=== PATIENT | female | born 1960 | race Caucasian/White ===

== ENCOUNTER 2020-02-26 01:48 | Inpatient (IN) ==
[2020-02-26] MEDS ORDERED: Naloxone 0.4 MG/ML INJ IVP PRN ×2 (02:43→19:52)
[2020-02-26] MEDS ORDERED: 0.9 % Sodium Chloride 1,000 ML IVC SCH (02:45)
[2020-02-26 05:49] LABS: Basophils # 0.1 K/mcL (0.0-0.2); Basophils % 0.5 %; Eosinophils % 0.2 %; Hematocrit 36.9 % (35.3-44.9); Hemoglobin 12.2 g/dL (11.5-15.4); Immature Granulocytes % 0.6 % (0-4); Lymphocytes # 1.4 K/mcL (0.6-4.6); Lymphocytes % 8.7 %; Mean Corpuscular HGB Conc 33.1 g/dL (31.6-35.5); Mean Corpuscular Hemoglobin 30.2 pg (28.0-33.3); Mean Corpuscular Volume 91.3 fL (83.0-100.0); Mean Platelet Volume 9.3 fL (9.4-12.4); Monocytes # 1.4 K/mcL (0.0-1.3); Monocytes % 8.6 %; Neutrophils # 13.4 K/mcL (1.6-8.9); Platelet Count 298 K/mcL (140-400); Red Blood Count 4.04 M/mcL (3.82-4.97); Red Cell Distribution Width 11.9 % (11.5-14.5); Segmented Neutrophils % 81.4 %; White Blood Count 16.5 K/mcL (4.3-11.1)
[2020-02-26 05:54] LABS: INR 1.3; Prothrombin Time 14.6 Seconds (9.4-12.1)
[2020-02-26 05:57] LABS: Activated Partial Thrombo Time 28.6 Seconds (26.0-36.0)
[2020-02-26 06:09] LABS: Alanine Aminotransferase 23 Units/L (7-52); Albumin 3.6 g/dL (3.5-5.7); Albumin/Globulin Ratio 1.3 (1.1-2.2); Alkaline Phosphatase 128 Units/L (34-104); Aspartate Amino Transferase 15 Units/L (13-39); BUN/Creatinine Ratio 16 (6-26); Bilirubin,Total 0.5 mg/dL (0.3-1.0); Blood Urea Nitrogen 10 mg/dL (8-23); Calcium 8.5 mg/dL (8.6-10.3); Carbon Dioxide 27 mEq/L (23-29); Chloride 102 mEq/L (98-107); Globulin 2.8 g/dL (2.4-3.5); Glucose 107 mg/dL (70-105); Osmolality,Calculated 282 (280-300); Potassium 3.3 mEq/L (3.5-5.1); Sodium 136 mEq/L (136-145); Total Protein 6.4 g/dL (6.4-8.9); eGFR For African Americans > 60 (> 60); eGFR For Non-African Americans > 60 (> 60)
[2020-02-26] MEDS ORDERED: Isovue-370 500 ML BOTTLE IVP ONE (08:53)
[2020-02-26] MEDS ORDERED: *HR* HYDROmorphone (PF) 1 MG/ML SYRINGE IVP PRN (08:53)
[2020-02-26] MEDS ORDERED: Morphine Sulfate 2 MG/ML SYRINGE IVP PRN ×2 (08:55→19:52)
[2020-02-26] MEDS: Piperacillin/Tazobactam 3.375 GM in 0.9 % Sodium Chloride Mini Bag 100 ML IVPB SCH ×2 (09:43→19:34)
[2020-02-26] MEDS ORDERED: *HR* Metoprolol 5 MG/5 ML VIAL IVP PRN (09:43)
[2020-02-26 10:06] LABS: Carcinoembryonic Antigen 3.4 ng/mL (Less than 5.0)
[2020-02-26] MEDS ORDERED: Isovue-370 500 ML BOTTLE PO ONE (11:42)
[2020-02-26] MEDS ORDERED: Lidocaine -MPF 4% 5 ML AMPUL ONE (16:02)
[2020-02-26] MEDS ORDERED: *HR* FentaNYL (PF) 100 MCG/2 ML VIAL ONE (16:02)
[2020-02-26] MEDS ORDERED: *HR* Rocuronium Bromide 50 MG/5 ML VIAL ONE (16:02)
[2020-02-26] MEDS ORDERED: Lidocaine -MPF 2% 2 ML VIAL ONE (16:02)
[2020-02-26] MEDS ORDERED: *HR* Succinylcholine 200 MG/10 ML VIAL IVP ONE (16:02)
[2020-02-26] MEDS ORDERED: *HR* Propofol 200 MG/20 ML VIAL IVP ONE (16:02)
[2020-02-26] MEDS ORDERED: Ondansetron 4 MG/2 ML VIAL ONE (16:04)
[2020-02-26] MEDS ORDERED: Dexamethasone 4 MG/ML VIAL ONE (16:04)
[2020-02-26] MEDS ORDERED: Bupivacaine/EPI 1:200k 0.25%PF 30 ML VIAL ONE (16:06)
[2020-02-26] MEDS ORDERED: *HR* PHENYLEPHRINE 1,000 MCG/10 ML SYRINGE IVP ONE (17:07)
[2020-02-26] MEDS ORDERED: CefOXitin 1,000 MG VIAL ONE (17:45)
[2020-02-26] MEDS ORDERED: Ketorolac 30 MG/ML VIAL ONE (17:50)
[2020-02-26] MEDS ORDERED: *HR* HYDROMORPHONE 2 MG/ML VIAL ONE (17:56)
[2020-02-26] MEDS ORDERED: *HR* HYDROmorphone PF 0.5 MG/0.5 ML SYRINGE IVP PRN ×2 (18:27→19:52)
[2020-02-26] MEDS ORDERED: Acetaminophen IV 1,000 MG/100 ML INFUS..BTL IVPB ONE (18:29)
[2020-02-26] MEDS ORDERED: *HR* Promethazine 25 MG/ML VIAL IVP PRN (18:38)
[2020-02-27] MEDS: Piperacillin/Tazobactam 3.375 GM in 0.9 % Sodium Chloride Mini Bag 100 ML IVPB SCH ×3 (03:48→20:48)
[2020-02-27] MEDS: Metoprolol XL (24 HR) Succ 50 MG TAB.ER.24H PO SCH (08:01)
[2020-02-27 08:43] LABS: Alanine Aminotransferase 22 Units/L (7-52); Albumin 3.4 g/dL (3.5-5.7); Albumin/Globulin Ratio 1.1 (1.1-2.2); Alkaline Phosphatase 115 Units/L (34-104); Aspartate Amino Transferase 18 Units/L (13-39); BUN/Creatinine Ratio 18 (6-26); Blood Urea Nitrogen 13 mg/dL (8-23); Carbon Dioxide 26 mEq/L (23-29); Chloride 99 mEq/L (98-107); Globulin 3.2 g/dL (2.4-3.5); Glucose 122 mg/dL (70-105); Magnesium 1.9 mg/dL (1.6-2.6); Osmolality,Calculated 279 (280-300); Phosphorous 2.8 mg/dL (2.7-4.5); Potassium 3.7 mEq/L (3.5-5.1); Sodium 134 mEq/L (136-145); Total Protein 6.6 g/dL (6.4-8.9); eGFR For African Americans > 60 (> 60); eGFR For Non-African Americans > 60 (> 60)
[2020-02-27] MEDS ORDERED: Metoprolol XL (24 HR) Succ 50 MG TAB.ER.24H PO SCH (09:00)
[2020-02-27 09:42] LABS: Basophils % 0.2 %; Eosinophils % 0.1 %; Hematocrit 37.4 % (35.3-44.9); Hemoglobin 12.1 g/dL (11.5-15.4); Immature Granulocytes % 0.6 % (0-4); Lymphocytes # 0.6 K/mcL (0.6-4.6); Lymphocytes % 3.2 %; Mean Corpuscular HGB Conc 32.4 g/dL (31.6-35.5); Mean Corpuscular Hemoglobin 30.1 pg (28.0-33.3); Mean Platelet Volume 9.3 fL (9.4-12.4); Monocytes # 0.6 K/mcL (0.0-1.3); Neutrophils # 18.7 K/mcL (1.6-8.9); Platelet Count 331 K/mcL (140-400); Red Blood Count 4.02 M/mcL (3.82-4.97); Red Cell Distribution Width 12.1 % (11.5-14.5); Segmented Neutrophils % 92.9 %; White Blood Count 20.1 K/mcL (4.3-11.1)
[2020-02-27] MEDS: Ketorolac 15 MG/ML VIAL IVP SCH ×3 (12:25→23:21)
[2020-02-27] MEDS: Levalbuterol Neb 1.25 MG/3 ML IH SCH (21:05)
[2020-02-27] MEDS ORDERED: cefTRIAXone 1,000 MG in Water for inj. (sterile) 10 ML IVPB SCH (23:45)
[2020-02-28] MEDS: Azithromycin 500 MG in 0.9 % Sodium Chloride 250 ML IVPB SCH (00:54)
[2020-02-28 01:33] LABS: Basophils % 0.2 %; Eosinophils % 0.1 %; Hemoglobin 11.9 g/dL (11.5-15.4); Lymphocytes # 1.3 K/mcL (0.6-4.6); Lymphocytes % 5.3 %; Mean Corpuscular HGB Conc 33.1 g/dL (31.6-35.5); Mean Corpuscular Hemoglobin 30.4 pg (28.0-33.3); Mean Corpuscular Volume 92.1 fL (83.0-100.0); Mean Platelet Volume 9.5 fL (9.4-12.4); Monocytes # 1.2 K/mcL (0.0-1.3); Monocytes % 5.1 %; Neutrophils # 21.3 K/mcL (1.6-8.9); Platelet Count 331 K/mcL (140-400); Red Blood Count 3.91 M/mcL (3.82-4.97); Red Cell Distribution Width 12.1 % (11.5-14.5); Segmented Neutrophils % 88.3 %; White Blood Count 24.1 K/mcL (4.3-11.1)
[2020-02-28 01:36] LABS: Basophils # 0.1 K/mcL (0.0-0.2)
[2020-02-28 01:50] LABS: BUN/Creatinine Ratio 20 (6-26); Blood Urea Nitrogen 13 mg/dL (8-23); Carbon Dioxide 28 mEq/L (23-29); Chloride 95 mEq/L (98-107); Glucose 108 mg/dL (70-105); Potassium 3.6 mEq/L (3.5-5.1); Sodium 132 mEq/L (136-145); eGFR For African Americans > 60 (> 60); eGFR For Non-African Americans > 60 (> 60)
[2020-02-28 01:51] LABS: Calcium 8.8 mg/dL (8.6-10.3); Magnesium 1.9 mg/dL (1.6-2.6); Osmolality,Calculated 275 (280-300); Phosphorous 2.6 mg/dL (2.7-4.5)
[2020-02-28 02:04] LABS: Large Platelets Present (Not Present); Platelet Estimate Normal (Normal)
[2020-02-28] MEDS: Piperacillin/Tazobactam 3.375 GM in 0.9 % Sodium Chloride Mini Bag 100 ML IVPB SCH ×3 (04:05→20:41)
[2020-02-28] MEDS: Levalbuterol Neb 1.25 MG/3 ML IH SCH ×4 (04:10→22:33)
[2020-02-28] MEDS: Ketorolac 15 MG/ML VIAL IVP SCH ×3 (05:41→18:00)
[2020-02-28] MEDS ORDERED: Isovue-370 500 ML BOTTLE IVP ONE (06:42)
[2020-02-28] MEDS: *HR* Metoprolol 5 MG/5 ML VIAL IVP PRN (06:46)
[2020-02-28] MEDS: Metoprolol XL (24 HR) Succ 50 MG TAB.ER.24H PO SCH (07:59)
[2020-02-28] MEDS: predniSONE 20 MG TABLET PO SCH (12:14)
[2020-02-29] MEDS: Ketorolac 15 MG/ML VIAL IVP SCH ×5 (01:02→23:38)
[2020-02-29] MEDS: Azithromycin 500 MG in 0.9 % Sodium Chloride 250 ML IVPB SCH (01:02)
[2020-02-29] MEDS: Levalbuterol Neb 1.25 MG/3 ML IH SCH ×4 (03:47→21:31)
[2020-02-29 05:14] LABS: Basophils % 0.2 %; Eosinophils % 0.1 %; Hematocrit 34.1 % (35.3-44.9); Hemoglobin 11.3 g/dL (11.5-15.4); Immature Granulocytes % 0.9 % (0-4); Lymphocytes # 1.1 K/mcL (0.6-4.6); Lymphocytes % 6.7 %; Mean Corpuscular HGB Conc 33.1 g/dL (31.6-35.5); Mean Corpuscular Hemoglobin 30.4 pg (28.0-33.3); Mean Corpuscular Volume 91.7 fL (83.0-100.0); Mean Platelet Volume 9.6 fL (9.4-12.4); Monocytes % 5.7 %; Neutrophils # 14.8 K/mcL (1.6-8.9); Platelet Count 337 K/mcL (140-400); Red Blood Count 3.72 M/mcL (3.82-4.97); Red Cell Distribution Width 12.3 % (11.5-14.5); Segmented Neutrophils % 86.4 %; White Blood Count 17.1 K/mcL (4.3-11.1)
[2020-02-29 05:30] LABS: BUN/Creatinine Ratio 24 (6-26); Blood Urea Nitrogen 13 mg/dL (8-23); Calcium 8.1 mg/dL (8.6-10.3); Carbon Dioxide 29 mEq/L (23-29); Chloride 101 mEq/L (98-107); Glucose 115 mg/dL (70-105); Osmolality,Calculated 281 (280-300); Potassium 3.3 mEq/L (3.5-5.1); Sodium 135 mEq/L (136-145); eGFR For African Americans > 60 (> 60); eGFR For Non-African Americans > 60 (> 60)
[2020-02-29] MEDS: Piperacillin/Tazobactam 3.375 GM in 0.9 % Sodium Chloride Mini Bag 100 ML IVPB SCH ×3 (05:51→19:52)
[2020-02-29] MEDS ORDERED: Potassium Chloride 20 MEQ, Lidocaine 1% 2 ML in 0.9 % Sodium Chloride 250 ML IVPB ONE (06:30)
[2020-02-29] MEDS ORDERED: Potassium Chloride 40 MEQ, Lidocaine 1% 2 ML in 0.9 % Sodium Chloride 500 ML IVPB ONE (06:31)
[2020-02-29] MEDS ORDERED: Potassium Chloride Elixir 20 MEQ/15 ML UDC PO ONE (07:40)
[2020-02-29] MEDS: predniSONE 20 MG TABLET PO SCH (08:14)
[2020-02-29] MEDS: Metoprolol XL (24 HR) Succ 50 MG TAB.ER.24H PO SCH (08:14)
[2020-03-01 00:30] LABS: Basophils % 0.2 %; Eosinophils # 0.2 K/mcL (0.0-0.6); Eosinophils % 1.3 %; Hematocrit 35.4 % (35.3-44.9); Hemoglobin 11.5 g/dL (11.5-15.4); Immature Granulocytes % 1.7 % (0-4); Lymphocytes # 1.2 K/mcL (0.6-4.6); Lymphocytes % 7.2 %; Mean Corpuscular HGB Conc 32.5 g/dL (31.6-35.5); Mean Corpuscular Hemoglobin 30.4 pg (28.0-33.3); Mean Corpuscular Volume 93.7 fL (83.0-100.0); Mean Platelet Volume 9.5 fL (9.4-12.4); Monocytes % 6.2 %; Neutrophils # 13.8 K/mcL (1.6-8.9); Platelet Count 335 K/mcL (140-400); Red Blood Count 3.78 M/mcL (3.82-4.97); Red Cell Distribution Width 12.6 % (11.5-14.5); Segmented Neutrophils % 83.4 %; White Blood Count 16.6 K/mcL (4.3-11.1)
[2020-03-01 00:49] LABS: BUN/Creatinine Ratio 21 (6-26); Blood Urea Nitrogen 13 mg/dL (8-23); Calcium 8.3 mg/dL (8.6-10.3); Carbon Dioxide 25 mEq/L (23-29); Chloride 106 mEq/L (98-107); Glucose 127 mg/dL (70-105); Osmolality,Calculated 288 (280-300); Potassium 3.9 mEq/L (3.5-5.1); Sodium 138 mEq/L (136-145); eGFR For African Americans > 60 (> 60); eGFR For Non-African Americans > 60 (> 60)
[2020-03-01] MEDS: Vancomycin 1,250 MG/262.5 ML IV.SOLN IVPB SCH ×2 (01:55→14:22)
[2020-03-01] MEDS: Piperacillin/Tazobactam 3.375 GM in 0.9 % Sodium Chloride Mini Bag 100 ML IVPB SCH ×3 (03:48→19:45)
[2020-03-01] MEDS: Levalbuterol Neb 1.25 MG/3 ML IH SCH ×4 (03:52→21:49)
[2020-03-01] MEDS: Ketorolac 15 MG/ML VIAL IVP SCH ×4 (05:40→23:24)
[2020-03-01] MEDS: Metoprolol XL (24 HR) Succ 50 MG TAB.ER.24H PO SCH (08:13)
[2020-03-01] MEDS: predniSONE 20 MG TABLET PO SCH (08:13)
[2020-03-01] MEDS ORDERED: Aminoglycoside Consult 1 EACH MC ONE (08:54)
[2020-03-01] MEDS ORDERED: hydroCHLOROthiazide 25 MG TABLET PO SCH (09:00)
[2020-03-01] MEDS: Ondansetron 4 MG/2 ML VIAL IVP PRN (10:17)
[2020-03-01] MEDS: *HR* Metoprolol 5 MG/5 ML VIAL IVP PRN ×2 (10:33→16:24)
[2020-03-01] MEDS ORDERED: *HR* Labetalol 20 MG/4 ML SYRINGE IVP ONE (20:26)
[2020-03-02] MEDS: Vancomycin 1,250 MG/262.5 ML IV.SOLN IVPB SCH (01:51)
[2020-03-02 02:05] LABS: Basophils # 0.1 K/mcL (0.0-0.2); Basophils % 0.4 %; Eosinophils # 0.1 K/mcL (0.0-0.6); Eosinophils % 0.7 %; Hematocrit 36.7 % (35.3-44.9); Hemoglobin 11.6 g/dL (11.5-15.4); Immature Granulocytes % 2.9 % (0-4); Lymphocytes # 1.7 K/mcL (0.6-4.6); Mean Corpuscular HGB Conc 31.6 g/dL (31.6-35.5); Mean Corpuscular Hemoglobin 29.6 pg (28.0-33.3); Mean Corpuscular Volume 93.6 fL (83.0-100.0); Mean Platelet Volume 9.4 fL (9.4-12.4); Monocytes # 1.7 K/mcL (0.0-1.3); Monocytes % 10.9 %; Neutrophils # 11.6 K/mcL (1.6-8.9); Platelet Count 382 K/mcL (140-400); Red Blood Count 3.92 M/mcL (3.82-4.97); Red Cell Distribution Width 12.6 % (11.5-14.5); Segmented Neutrophils % 74.1 %; White Blood Count 15.7 K/mcL (4.3-11.1)
[2020-03-02 02:25] LABS: BUN/Creatinine Ratio 18 (6-26); Blood Urea Nitrogen 20 mg/dL (8-23); Calcium 8.5 mg/dL (8.6-10.3); Carbon Dioxide 28 mEq/L (23-29); Chloride 105 mEq/L (98-107); Glucose 111 mg/dL (70-105); Osmolality,Calculated 289 (280-300); Potassium 3.7 mEq/L (3.5-5.1); Sodium 138 mEq/L (136-145); eGFR For African Americans > 60 (> 60); eGFR For Non-African Americans 50 (> 60)
[2020-03-02] MEDS: Levalbuterol Neb 1.25 MG/3 ML IH SCH ×4 (03:18→22:05)
[2020-03-02] MEDS: Piperacillin/Tazobactam 3.375 GM in 0.9 % Sodium Chloride Mini Bag 100 ML IVPB SCH ×3 (03:36→21:04)
[2020-03-02] MEDS: Ondansetron 4 MG/2 ML VIAL IVP PRN (05:19)
[2020-03-02] MEDS: Ketorolac 15 MG/ML VIAL IVP SCH (05:20)
[2020-03-02] MEDS ORDERED: *HR* Labetalol 20 MG/4 ML SYRINGE IVP ONE (05:31)
[2020-03-02] MEDS ORDERED: Prochlorperazine 10 MG/2 ML VIAL IVP PRN (06:24)
[2020-03-02] MEDS ORDERED: Ringers Solution, Lactated 1,000 ML IVC SCH (07:45)
[2020-03-02] MEDS: Doxycycline 100 MG CAPSULE PO SCH ×2 (09:09→21:05)
[2020-03-02] MEDS: predniSONE 20 MG TABLET PO SCH (09:09)
[2020-03-02] MEDS: Metoprolol XL (24 HR) Succ 50 MG TAB.ER.24H PO SCH (09:09)
[2020-03-02 15:38] LABS: BUN/Creatinine Ratio 20 (6-26); Blood Urea Nitrogen 20 mg/dL (8-23); Calcium 8.7 mg/dL (8.6-10.3); Carbon Dioxide 28 mEq/L (23-29); Chloride 103 mEq/L (98-107); Glucose 182 mg/dL (70-105); Osmolality,Calculated 295 (280-300); Potassium 3.6 mEq/L (3.5-5.1); Sodium 139 mEq/L (136-145); eGFR For African Americans > 60 (> 60); eGFR For Non-African Americans 56 (> 60)
[2020-03-02] MEDS: 0.9 % Sodium Chloride 1,000 ML IVC SCH (16:52)
[2020-03-03] MEDS: Levalbuterol Neb 1.25 MG/3 ML IH SCH ×2 (03:30→10:07)
[2020-03-03] MEDS: 0.9 % Sodium Chloride 1,000 ML IVC SCH (03:33)
[2020-03-03] MEDS: Piperacillin/Tazobactam 3.375 GM in 0.9 % Sodium Chloride Mini Bag 100 ML IVPB SCH (03:33)
[2020-03-03] MEDS ORDERED: Acetaminophen 325 MG TABLET PO ONE (05:26)
[2020-03-03 05:39] LABS: Basophils # 0.1 K/mcL (0.0-0.2); Basophils % 0.6 %; Eosinophils # 0.2 K/mcL (0.0-0.6); Eosinophils % 1.3 %; Hematocrit 39.1 % (35.3-44.9); Hemoglobin 12.9 g/dL (11.5-15.4); Immature Granulocytes % 3.5 % (0-4); Lymphocytes % 16.6 %; Mean Corpuscular Hemoglobin 30.3 pg (28.0-33.3); Mean Corpuscular Volume 91.8 fL (83.0-100.0); Mean Platelet Volume 9.4 fL (9.4-12.4); Monocytes # 1.8 K/mcL (0.0-1.3); Monocytes % 9.7 %; Neutrophils # 12.3 K/mcL (1.6-8.9); Platelet Count 414 K/mcL (140-400); Red Blood Count 4.26 M/mcL (3.82-4.97); Red Cell Distribution Width 12.8 % (11.5-14.5); Segmented Neutrophils % 68.3 %
[2020-03-03 05:58] LABS: BUN/Creatinine Ratio 20 (6-26); Blood Urea Nitrogen 19 mg/dL (8-23); Calcium 8.7 mg/dL (8.6-10.3); Carbon Dioxide 30 mEq/L (23-29); Chloride 102 mEq/L (98-107); Glucose 94 mg/dL (70-105); Osmolality,Calculated 292 (280-300); Potassium 3.3 mEq/L (3.5-5.1); Sodium 140 mEq/L (136-145); eGFR For African Americans > 60 (> 60); eGFR For Non-African Americans 59 (> 60)
[2020-03-03] MEDS ORDERED: 0.45 % Sodium Chloride w/KCl 20 MEQ/1,000 ML MLS IVC SCH (08:00)
[2020-03-03 08:11] VITALS: BP 167/91
[2020-03-03] MEDS ORDERED: amLODIPine 5 MG TABLET PO SCH (09:00)
[2020-03-03] MEDS: predniSONE 20 MG TABLET PO SCH (09:02)
[2020-03-03] MEDS: Doxycycline 100 MG CAPSULE PO SCH (09:02)
[2020-03-03] MEDS: Metoprolol XL (24 HR) Succ 50 MG TAB.ER.24H PO SCH (09:02)
== END 2020-03-03 12:54 | disposition home or self-care (01) | DRG 338 ==
LOC: 3BNU → SUATTDRO 02:05 → 3ANU 16:58 → SUATTDRO 02-27 14:47
PROVIDERS: ADMIT Student in an Organized Health Care Education/Training Program; ATTEND Internal Medicine
PROC: GENAPPY (ICD-10-PCS; 2020-02-26 16:35)